=== PATIENT | male | born 1960 | race Asian ===

== ENCOUNTER 2019-08-30 16:51 | Inpatient (IN) | payer MEDICAID ==
[~2019-08-30] VITALS: Ht 170.2 cm; Wt 92.3 kg
[2019-08-30 17:22] LABS: BASOPHILS % (AUTO) 0.7 % (0.0-2.0); EOSINOPHILS % (AUTO) 3.8 % (1.0-6.0); HEMATOCRIT 45.6 % (41-53); HEMOGLOBIN 15.6 g/dL (13.5-17.5); LYMPHOCYTES # (AUTO) 3.9 K/uL (1.0-4.8); LYMPHOCYTES % (AUTO) 42.9 % (22.0-44.0); MEAN CORPUSCULAR HEMOGLOBIN 32.7 pg (26.0-34.0); MEAN CORPUSCULAR HGB CONC 34.2 G/dL (31.0-37.0); MEAN CORPUSCULAR VOLUME 95 fL (80-100); MONOCYTES # (AUTO) 1.1 K/uL (0.1-1.0); MONOCYTES % (AUTO) 12.1 % (2.0-9.0); NEUTROPHILS # (AUTO) 3.6 K/uL (1.8-7.7); NEUTROPHILS % (AUTO) 40.5 % (40.0-70.0); PLATELET COUNT (AUTO) 264 K/uL (150-450); RED BLOOD CELL COUNT(AUTO) 4.78 MIL/uL (4.50-5.90); RED CELL DISTRIBUTION WIDTH 12.7 % (11.5-14.5)
[2019-08-30 17:38] LABS: POTASSIUM 4.1 mmol/L (3.5-5.1); PROTHROMBIN TIME 9.7 SEC (9.4-11.6); SODIUM SERUM 141 mmol/L (136-145)
[2019-08-30 17:39] LABS: ANION GAP 7 mmol/L (8-16); CALCIUM, TOTAL 9.5 mg/dL (8.8-10.5); CARBON DIOXIDE 30 mmol/L (22-29); CHLORIDE 104 mmol/L (98-107); CREATININE 0.97 mg/dL (0.60-1.30); GLOMERULAR FILTR. RATE CALC > 60 mL/min (>60); GLUCOSE,RANDOM 110 mg/dL (70-110); UREA NITROGEN, BLOOD 16 mg/dL (7-18)
[2019-08-30 17:45] LABS: B-TYPE NATRIURETIC PEPTIDE 8 pg/mL (0-100)
[2019-08-30 17:47] LABS: LACTIC ACID 0.7 mmol/L (0.4-2.0)
[2019-08-30 17:55] LABS: AMMONIA 35 umol/L (11-32)
[2019-08-30 17:56] LABS: TROPONIN I < 0.02 ng/mL (0.00-0.05)
[2019-08-30 18:03] LABS: ALANINE AMINOTRANSFERASE 35 U/L (12-78); ALBUMIN 3.8 g/dL (3.4-5.0); ALKALINE PHOSPHATASE 69 U/L (46-116); ASPARTATE AMINOTRANSFERASE 23 U/L (15-37); BILIRUBIN,TOTAL 0.4 mg/dL (0.1-1.0); CREATINE KINASE, TOTAL ONLY 206 U/L (39-308); LIPASE 121 U/L (73-393); TOTAL PROTEIN, SERUM 7.8 g/dL (6.4-8.2)
[2019-08-30] MEDS ORDERED: ONDANSETRON HCL 4 MG/2 ML VIAL IVP PRN ×2 (18:30→20:45)
[2019-08-30] MEDS ORDERED: 0.9% SODIUM CHLORIDE 10 ML SYRINGE IVP PRN ×2 (18:30→20:45)
[2019-08-30] MEDS ORDERED: ACETAMINOPHEN 325 MG TABLET PO PRN ×2 (18:30→20:45)
[2019-08-30] MEDS ORDERED: ASPIRIN 325 MG TABLET PO ONE (18:30)
[2019-08-30] MEDS ORDERED: POTASSIUM CHL 10 MEQ/WATER 50 ML IV PRN (20:45)
[2019-08-30] MEDS ORDERED: POTASSIUM CHLORIDE 20 MEQ ER TABLET PO PRN (20:45)
[2019-08-30] MEDS ORDERED: MAGNESIUM SULFATE 4 GM/WATER 100 ML IV PRN (20:45)
[2019-08-30] MEDS ORDERED: ZOLPIDEM TARTRATE 5 MG TABLET PO PRN (20:45)
[2019-08-30] MEDS ORDERED: MAGNESIUM OXIDE 400 MG TABLET PO PRN (20:45)
[2019-08-30] MEDS ORDERED: MAGNESIUM SULFATE 2 GM/WATER 50 ML IV PRN (20:45)
[2019-08-30 21:18] VITALS: BP 170/114
[2019-08-30] MEDS: AmLODIPine BESYLATE 5 MG TABLET PO SCH (23:33)
[2019-08-31 06:21] LABS: BASOPHILS % (AUTO) 0.7 % (0.0-2.0); EOSINOPHILS % (AUTO) 4.7 % (1.0-6.0); HEMOGLOBIN 14.9 g/dL (13.5-17.5); LYMPHOCYTES # (AUTO) 3.1 K/uL (1.0-4.8); LYMPHOCYTES % (AUTO) 46.5 % (22.0-44.0); MEAN CORPUSCULAR HEMOGLOBIN 33.8 pg (26.0-34.0); MEAN CORPUSCULAR HGB CONC 35.7 G/dL (31.0-37.0); MEAN CORPUSCULAR VOLUME 95 fL (80-100); MONOCYTES # (AUTO) 0.8 K/uL (0.1-1.0); MONOCYTES % (AUTO) 11.5 % (2.0-9.0); NEUTROPHILS # (AUTO) 2.5 K/uL (1.8-7.7); NEUTROPHILS % (AUTO) 36.6 % (40.0-70.0); PLATELET COUNT (AUTO) 254 K/uL (150-450); RED CELL DISTRIBUTION WIDTH 12.8 % (11.5-14.5)
[2019-08-31 06:30] LABS: ANION GAP 7 mmol/L (8-16); CALCIUM, TOTAL 8.8 mg/dL (8.8-10.5); CARBON DIOXIDE 30 mmol/L (22-29); CHLORIDE 102 mmol/L (98-107); CREATININE 1.09 mg/dL (0.60-1.30); GLOMERULAR FILTR. RATE CALC > 60 mL/min (>60); GLUCOSE,RANDOM 137 mg/dL (70-110); POTASSIUM 3.6 mmol/L (3.5-5.1); SODIUM SERUM 139 mmol/L (136-145); UREA NITROGEN, BLOOD 13 mg/dL (7-18)
[2019-08-31 06:52] LABS: HEMATOCRIT 42.7 % (41-53)
[2019-08-31 07:50] VITALS: BP 140/100
[2019-08-31] MEDS: AmLODIPine BESYLATE 5 MG TABLET PO SCH ×2 (08:40→20:09)
[2019-08-31] MEDS: PANTOPRAZOLE SODIUM 40 MG DR TABLET PO SCH (08:41)
[2019-08-31 11:20] LABS: CHOLESTEROL 270 mg/dL (131-200); HDL CHOLESTEROL 27 mg/dL (40-60); TRIGLYCERIDES 788 mg/dL (15-150)
[2019-08-31 11:50] VITALS: BP 160/103
[2019-08-31] MEDS: ASPIRIN 81 MG CHEWABLE TABLET PO SCH (15:02)
[2019-08-31] MEDS: ATORVASTATIN CALCIUM 40 MG TABLET PO SCH (15:02)
[2019-08-31 15:49] VITALS: BP 147/93
[2019-08-31 20:30] VITALS: BP 164/95
[2019-08-31 23:30] VITALS: BP 147/81
[2019-09-01 03:46] VITALS: BP 130/80
[2019-09-01 07:36] VITALS: BP 152/85
[2019-09-01 08:24] LABS: BASOPHILS % (AUTO) 0.5 % (0.0-2.0); HEMATOCRIT 45.3 % (41-53); HEMOGLOBIN 15.6 g/dL (13.5-17.5); LYMPHOCYTES # (AUTO) 2.8 K/uL (1.0-4.8); LYMPHOCYTES % (AUTO) 36.6 % (22.0-44.0); MEAN CORPUSCULAR HEMOGLOBIN 32.6 pg (26.0-34.0); MEAN CORPUSCULAR HGB CONC 34.5 G/dL (31.0-37.0); MEAN CORPUSCULAR VOLUME 94 fL (80-100); MONOCYTES # (AUTO) 0.8 K/uL (0.1-1.0); MONOCYTES % (AUTO) 10.8 % (2.0-9.0); NEUTROPHILS # (AUTO) 3.6 K/uL (1.8-7.7); NEUTROPHILS % (AUTO) 46.1 % (40.0-70.0); PLATELET COUNT (AUTO) 251 K/uL (150-450); RED CELL DISTRIBUTION WIDTH 12.6 % (11.5-14.5)
[2019-09-01] MEDS: ASPIRIN 81 MG CHEWABLE TABLET PO SCH (08:29)
[2019-09-01] MEDS: PANTOPRAZOLE SODIUM 40 MG DR TABLET PO SCH (08:29)
[2019-09-01] MEDS: ATORVASTATIN CALCIUM 40 MG TABLET PO SCH (08:29)
[2019-09-01] MEDS: AmLODIPine BESYLATE 5 MG TABLET PO SCH (08:29)
[2019-09-01 08:36] LABS: ANION GAP 8 mmol/L (8-16); CARBON DIOXIDE 30 mmol/L (22-29); CHLORIDE 104 mmol/L (98-107); GLOMERULAR FILTR. RATE CALC > 60 mL/min (>60); GLUCOSE,RANDOM 128 mg/dL (70-110); SODIUM SERUM 142 mmol/L (136-145); UREA NITROGEN, BLOOD 15 mg/dL (7-18)
[2019-09-01 11:15] VITALS: BP 143/90
[2019-09-01] MEDS ORDERED: ASPI-728 PO (13:05)
[2019-09-01] MEDS ORDERED: ATOR40TA28 PO (13:06)
[2019-09-01] MEDS ORDERED: LISI-660 PO (13:06)
[2019-09-01] MEDS ORDERED: AMLO5TAB9 PO (13:07)
[2019-09-01] MEDS ORDERED: MAGNESIUM SULFATE 2 GM/WATER 50 ML IV ONE (13:15)
[2019-09-01] MEDS ORDERED: SODIUM CHLORIDE 0.9% 50 ML ONE (13:49)
[2019-09-01 15:49] VITALS: BP 138/93
== END 2019-09-01 16:30 | disposition home or self-care (01) | DRG 45 ==
LOC: EMS 16:52 → 5S 18:35
PROVIDERS: ADMIT Internal Medicine; ATTEND Internal Medicine
DX: I63.9 Cerebral infarction, unspecified (principal)
CPT/HCPCS: 70450; 70551; 83605; 83735; 92521; 93005; 93306; 93880; 97161; 97165; 97535; 99291; G0480; J3475; J7050